=== PATIENT | female | born 1940 | race Caucasian/White ===

== ENCOUNTER 2017-10-26 12:44 | Emergency (ER) | payer MEDICARE ==
[2017-10-26] MEDS ORDERED: cloNIDine TAB* 0.1 MG PO ONE (13:42)
[2017-10-26 15:33] VITALS: BP 103/51
--- NOTE | 2017-10-26 15:54 | ED ---
Kuldip Ramos Gabriel, scribed for Kelley Wellington MD on 10/26/17 at 1341 . Hypertension - HPI Summary HPI Summary: This patient is a 77 year old F presenting to [facility] accompanied by her with a chief complaint of elevated BP since earlier today. Upon arrival BP was 199/89.The patient rates the pain 2/10 in severity. Patient reports anxiety and increased stress. Patient denies bach, ringing in ears, and n/v. Pt just was seen for a US because she does not have a pulse in her LE. During the US the noticed her BP was 202/90 she has a hx of HTN took her medication this morning. - History of Current Complaint Chief Complaint: EDHypertension Stated Complaint: HIGH BP-CC TRANSFER Time Seen by Provider: 10/26/17 13:32 Hx Obtained From: Patient Onset/Duration: Started Hours Ago, Still Present Timing: Constant Associated Signs & Symptoms: Negative - bach, ringing in ears, n/v,, Anxiety/ Stress - Allergies/Home Medications Allergies/Adverse Reactions: Allergies Allergy/AdvReac Type Severity Reaction Status Date / Time doxycycline Allergy Abdominal Verified 10/26/17 15:41 Pain latex Allergy Rash Verified 10/26/17 15:41 levofloxacin Allergy Hives Verified 10/26/17 15:41 Trizalam Allergy Altered Uncoded 07/13/15 13:12 Mental Status Home Medications: Home Medications Aspirin EC Low Dose* [Ecotrin EC Low Dose 81 MG*] 81 mg PO DAILY 10/26/17 [ History Confirmed 10/26/17] Baclofen TAB* [Lioresal TAB*] 5 - 10 mg PO QPM PRN 10/26/17 [History Confirmed 10/26/17] Cholecalciferol TAB* [Vitamin D TAB*] 1,000 unit PO DAILY 10/26/17 [History Confirmed 10/26/17] Esomeprazole(NF) [NEXium(NF)] 20 mg PO .EVERY THREE DAYS 10/26/17 [History Confirmed 10/26/17] HYDROcodone/ACETAMIN 5-325 MG* [[place] 5-325 TAB*] 1 tab PO BID PRN 10/26/17 [ History Confirmed 10/26/17] Losartan TAB* [Cozaar TAB*] 50 mg PO DAILY 10/26/17 [History Confirmed 10/26/17] Lutein/Zeaxanthin [Ocuvite Lutein 25 25-5 mg] 1 cap PO BID 10/26/17 [History Confirmed 10/26/17] Lysine 500 mg PO DAILY 10/26/17 [History Confirmed 10/26/17] Multivitamins/Minerals TAB* [Theragran/minerals TAB*] 1 tab PO DAILY 10/26/17 [ History Confirmed 10/26/17] Bland-3 Fatty Acids (Nf) [Fish Oil (NF)] 1,000 mg PO DAILY 10/26/17 [History Confirmed 10/26/17] Vitamin B Complex CAP* [B Complex CAP*] 1 cap PO DAILY 10/26/17 [History Confirmed 10/26/17] celeCOXIB CAP* [CeleBREX CAP*] 200 mg PO DAILY 10/26/17 [History Confirmed 10/26] PMH/Surg Hx/FS Hx/Imm Hx Endocrine/Hematology History: Denies: Hx Diabetes, Hx Thyroid Disease Cardiovascular History: Reports: Hx Hypertension Denies: Hx Congestive Heart Failure, Hx Pacemaker/ICD Respiratory History: Reports: Hx Pneumonia, Other Respiratory Problems/ Disorders - HX OF PNEUMONIA Denies: Hx Asthma, Hx Chronic Obstructive Pulmonary Disease (COPD) GI History: Reports: Hx Gastroesophageal Reflux Disease, Hx Ulcer History: Denies: Hx Renal Disease Musculoskeletal History: Reports: Hx Arthritis, Hx Rheumatoid Arthritis, Hx Back Problems, Other Musculoskeletal History - osteoarthritis Sensory History: Reports: Hx Contacts or Glasses Denies: Hx Hearing Aid Opthamlomology History: Reports: Hx Contacts or Glasses Neurological History: Reports: Other Neuro Impairments/Disorders - PAIN CLINIC PT Psychiatric History: Reports: Hx Panic Disorder - Claustraphobia - Cancer History Hx Chemotherapy: No Hx Radiation Therapy: No - Surgical History Surgery Procedure, Year, and Place: C section Hx Anesthesia Reactions: No Infectious Disease History: No Infectious Disease History: Denies: Hx Clostridium Difficile, Hx Hepatitis, Hx Human Immunodeficiency Virus (HIV), Hx of Known/Suspected MRSA, Hx Shingles, Hx Tuberculosis, Hx Known/ Suspected VRE, Hx Known/Suspected VRSA, History Other Infectious Disease, Traveled Outside the [place] in Last 30 Days - Social History Alcohol Use: Rare Substance Use Type: Reports: None Smoking Status (MU): Never Smoked Tobacco Have You Smoked in the Last Year: No Review of Systems Positive: Other - elevated BP Negative: Vomiting, Nausea Negative: Headache Positive: Anxious, Other - stress All Other Systems Reviewed And Are Negative: Yes Physical Exam - Summary Physical Exam Summary: VITAL SIGNS: Reviewed. GENERAL: Patient is a well-developed and nourished female who is lying comfortable in the stretcher. Patient is not in any acute respiratory distress. HEAD AND FACE: No signs of trauma. No ecchymosis, hematomas or skull depressions. No sinus tenderness. EYES: PERRLA, EOMI x 2, No injected conjunctiva, no nystagmus. EARS: Hearing grossly intact. Ear canals and tympanic membranes are within normal limits. MOUTH: Oropharynx within normal limits. NECK: Supple, trachea is midline, no adenopathy, no JVD, no carotid bruit, no c- spine tenderness, neck with full ROM. CHEST: Symmetric, no tenderness at palpation LUNGS: Clear to auscultation bilaterally. No wheezing or crackles. CVS: Regular rate and rhythm, S1 and S2 present, no murmurs or gallops appreciated. ABDOMEN: Soft, non-tender. No signs of distention. No rebound no guarding, and no masses palpated. Bowel sounds are normal. EXTREMITIES: FROM in all major joints, no edema, no cyanosis or clubbing. NEURO: Alert and oriented x 3. No acute neurological deficits. Speech is normal and follows commands. SKIN: Dry and warm Triage Information Reviewed: Yes Vital Signs On Initial Exam: Initial Vitals Temp Pulse Resp BP Pulse Ox 98.2 F 67 18 218/84 97 10/26/17 12:48 10/26/17 12:48 10/26/17 12:48 10/26/17 12:48 10/26/17 12:48 Vital Signs Reviewed: Yes Diagnostics - Vital Signs Vital Signs Temp Pulse Resp BP Pulse Ox 10/26/17 12:48 98.2 F 67 18 218/84 97 - Laboratory Lab Statement: Any lab studies that have been ordered have been reviewed, and results considered in the medical decision making process. Re-Evaluation - Re-Evaluation First Eval Re-Evaluation Time: 14:21 Change: Unchanged - BP is still elevated Second Eval Re-Evaluation Time: 15:02 Change: Improved Comment: The patient's blood pressure has dropped to 127/89 Hypertension Course/Dx - Course Assessment/Plan: This patient is a 77 year old F presenting to [facility] accompanied by her with a chief complaint of elevated BP since earlier today. Upon arrival BP was 199/89.The patient rates the pain 2/10 in severity. Patient reports anxiety and increased stress. Patient denies bach, ringing in ears, and n/v. Pt just was seen for a US because she does not have a pulse in her LE. During the US the noticed her BP was 202/90 she has a hx of HTN took her medication this morning. In the ED course the patient was given clonidine which brought down her BP. Dx hypertension. Patient will be discharged with prescription for Novasc and follow up from PCP. The patient is agreeable with this plan. - Diagnoses Provider Diagnoses: Hypertension Discharge - Discharge Plan Condition: Stable Disposition: HOME Prescriptions: Amlodipine Besylate [Norvasc 2.5 mg tab] 2.5 mg PO DAILY #30 tab Patient Education Materials: Hypertension in the Older Adult (ED) Referrals: Lawrence Villanueva MD [Primary Care Provider] - 4 Days Additional Instructions: Use Norvasc as directed, monitor your blood pressure at home. RETURN TO EMERGENCY DEPARTMENT FOR ANY NEW OR WORSENING SYMPTOMS The documentation as recorded by the Kuldip hensley Gabriel accurately reflects the service I personally performed and the decisions made by me, Kelley Wellington MD.
== END 2017-10-26 15:55 | disposition home or self-care (01) ==
LOC: ED 12:44
DX: I10 Essential (primary) hypertension (principal); F41.9 Anxiety disorder, unspecified; Z88.8 Allergy status to other drugs, medicaments and biological substances; Z79.899 Other long term (current) drug therapy; K21.9 Gastro-esophageal reflux disease without esophagitis; M06.9 Rheumatoid arthritis, unspecified
CPT/HCPCS: 99283; A9270-GY

== ENCOUNTER 2020-03-23 07:18 | Inpatient (IN) ==
[~2020-03-23 07:18] MED LIST: Buffered Lidocaine 1% SYRIN 1 ml INTRADERM ONE; Famotidine IV 10 MG/ML 2 ml VIAL (20 mg) IV ONE; Lactated Ringers 1000 ml BAG 1,000 ML IV SCH
[2020-03-23] MEDS ORDERED: Buffered Lidocaine 1% SYRIN 1 ml INTRADERM ONE (07:47)
[2020-03-23] MEDS ORDERED: ceFAZolin 2 GM PREMIX 2 GM/50 ML BAG ONE ×2 (07:47)
[2020-03-23] MEDS ORDERED: Famotidine IV 10 MG/ML 2 ml VIAL (20 mg) ONE (07:47)
[2020-03-23] MEDS ORDERED: Naloxone 0.4 mg VIAL 0.4 mg/ml 1 ml VIAL IV PRN (07:53)
[2020-03-23] MEDS ORDERED: fentaNYL 100 mcg/2 ml 50 MCG/ML VIAL ONE ×2 (08:12→10:23)
[2020-03-23] MEDS ORDERED: ROPIVACAINE 5 MG/ML 30 ML BTL (0.5%) ONE (08:36)
[2020-03-23] MEDS ORDERED: Rocuronium 50 mg VIAL 10 mg/ml 5 ml VIAL (50 mg) ONE (09:54)
[2020-03-23] MEDS ORDERED: Dexamethasone IV 4 MG/ML VIAL 1 ml VIAL ONE (11:00)
[2020-03-23] MEDS ORDERED: Propofol 10 MG/ML 20 ML BTL ONE (11:00)
[2020-03-23] MEDS ORDERED: Etomidate 20 mg/10 ml 2 MG/ML 10 ml VIAL ONE (11:00)
[2020-03-23] MEDS ORDERED: Ondansetron 4 mg VIAL 2 MG/ML 2 ml VIAL ONE (11:11)
[2020-03-23] MEDS ORDERED: Ondansetron ODT 4 mg TAB 4 MG TAB PO PRN (11:57)
[2020-03-23] MEDS ORDERED: Morphine 2 MG/ML SYRINGE IV PRN (11:57)
[2020-03-23] MEDS ORDERED: Magnesium Hydroxide LIQ 30 ML UDC PO PRN (11:57)
[2020-03-23] MEDS ORDERED: oxyCODONE/Acetamin 5/325 mg TAB PO PRN (11:57)
[2020-03-23] MEDS ORDERED: Lactulose 30 ml UDC PO PRN (11:57)
[2020-03-23] MEDS ORDERED: diPHENhydraMINE IV 50 MG/ML 1 ml VIAL (BENADRYL) IV PRN (11:57)
[2020-03-23] MEDS ORDERED: Ondansetron 4 mg VIAL 2 MG/ML 2 ml VIAL IV PRN (11:57)
[2020-03-23] MEDS ORDERED: diPHENhydraMINE 25 mg TAB PO PRN (11:57)
[2020-03-23] MEDS ORDERED: Lactated Ringers 1000 ml BAG 1,000 ML IV SCH (12:00)
[2020-03-23] MEDS ORDERED: HYDROmorphone 1 MG/1 ML SYRINGE ONE ×2 (12:03→13:01)
[2020-03-23] MEDS: HYDROmorphone 1 MG/1 ML SYRINGE IV PRN ×2 (12:06→12:10)
[2020-03-23] MEDS ORDERED: Haloperidol 5 mg/ml SDV IV/IM 5 MG/ML AMP ONE (12:23)
[2020-03-23] MEDS ORDERED: oxyCODONE/Acetamin 5/325 mg TAB ONE (12:37)
[2020-03-23] MEDS ORDERED: Labetalol IV 5 MG/ML 20 ml VIAL IV PUSH ONE (12:59)
[2020-03-23] MEDS ORDERED: Labetalol IV 5 MG/ML 20 ml VIAL ONE (13:01)
[2020-03-23] MEDS: HYDROmorphone 0.5 MG/0.5 ML SYRINGE IV SLOW PU ONE ×2 (13:04→13:39)
[2020-03-23] MEDS: ceFAZolin 1 GM ADVAN 1 GM in NS 0.9% 50 ML 50 ML IVPB SCH (18:00)
[2020-03-23] MEDS: Magnesium Hydroxide LIQ 30 ML UDC PO SCH (22:36)
[2020-03-24] MEDS: ceFAZolin 1 GM ADVAN 1 GM in NS 0.9% 50 ML 50 ML IVPB SCH ×2 (02:04→10:20)
[2020-03-24 04:54] LABS: Hematocrit 35 % (35-47); Hemoglobin 12.3 g/dL (12.0-16.0); Mean Platelet Volume 8.1 fL (7.4-10.4); Platelet Count 319 10^3/uL (150-450)
[2020-03-24 05:12] LABS: BUN/Creatinine Ratio 14.9 (8-20); Calcium 8.6 mg/dL (8.6-10.3); EGFR African American 103.3 (>60); EGFR Non-African American 85.3 (>60); Potassium 3.9 mmol/L (3.5-5.0)
[2020-03-24] MEDS ORDERED: Vitamin THERAPEUTIC TAB PO SCH (09:00)
[2020-03-24] MEDS: Magnesium Hydroxide LIQ 30 ML UDC PO SCH (09:29)
[2020-03-24 12:03] VITALS: BP 134/51
== END 2020-03-24 13:37 | disposition home health service (06) | DRG 470 ==
LOC: INTOOBSV 07:18 → OBSVTOIN 07:18 → AA 07:18 → SSU 11:57
PROVIDERS: ADMIT Orthopaedic Surgery Adult Reconstructive Orthopaedic Surgery; ATTEND Orthopaedic Surgery Adult Reconstructive Orthopaedic Surgery